=== PATIENT | female | born 1955 | race Two or more races ===

== ENCOUNTER 2019-04-02 07:23 | Outpatient (CLI) | payer OTHER | END 2019-04-02 13:05 | disposition home or self-care (01) | LOC: NUCLEAR 07:23 | DX: R06.09 Other forms of dyspnea (principal); E66.8 Other obesity; E78.2 Mixed hyperlipidemia; R94.31 Abnormal electrocardiogram [ECG] [EKG] | CPT/HCPCS: 78452; 93017; A9500 ==